=== PATIENT | female | born 1970 | race Caucasian/White ===

== ENCOUNTER 2021-08-09 21:35 | Inpatient (IN) | payer MEDICAID, BC ==
[~2021-08-09] VITALS: Ht 160 cm; Wt 51.4 kg
[2021-08-10 04:45] VITALS: BP 108/70
[2021-08-10] MEDS ORDERED: loperamide 2mg capsule PO PRN (05:25)
[2021-08-10] MEDS ORDERED: magnesium hydroxide 30ml (MOM) UD suspension PO PRN (05:25)
[2021-08-10] MEDS ORDERED: mag hydrox/Alum hydrox/simeth 30ml oral suspension PO PRN (05:25)
[2021-08-10] MEDS ORDERED: acetaminophen 325mg tablet PO PRN ×2 (05:25)
[2021-08-10] MEDS ORDERED: NO HOME MEDS (05:30)
--- NOTE | 2021-08-10 05:46 | NUR ---
Admit note: Pt arrived on floor at 0415 accompanied by [facility] and Jayne PCT. Ambulatory, skin check completed pt took a shower. At first pt irritable and uncooperative. After shower pt in bed 332-b provided warm blankets cooperative with admit process. Per report from [place] the patient's live in boyfriend said she has not slept or ate for days and is constantly taking showers. Per 5150 from [place] law enforcement the pt is unable to care for self. The pt told the officer she was unable to eat because her mouth and anus are full of sin. The pt denies telling law enforcement any of this and she says she is not sleeping because her boyfriend keeps waking her up. Pt c/o stomach pain but declined any medications.
[2021-08-10 08:00] VITALS: BP 95/50
[2021-08-10] MEDS ORDERED: LORazepam 1 MG tablet PO ONE (09:55)
[2021-08-10 10:22] LABS: CLARITY,URINE SLIGHTLY CLOUDY (Clear); COLOR,URINE YELLOW (Yellow); GLUCOSE, URINE NEGATIVE (Neg); KETONES,URINE >=80 mg/dl (Neg); LEUKOCYTE ESTERASE ,URINE NEGATIVE (Neg); NITRITES, URINE NEGATIVE (Neg); OCCULT BLOOD,URINE MODERATE (Neg); PROTEIN,URINE TRACE mg/dl (Neg); UROBILINOGEN,URINE 0.2 E.U/dL (0.2-1.0)
[2021-08-10 10:23] LABS: UA COLLECTION TYPE NON-SPECIFIED
[2021-08-10 10:39] LABS: BACTERIA,URINE FEW /HPF (Neg); MUCUS STRANDS MODERATE /LPF (Neg)
[2021-08-10 10:43] LABS: HYALINE CASTS 0-3 /LPF (NEGATIVE); WBC,URINE 0-4 /HPF (0-4)
[2021-08-10 10:48] LABS: RBC,URINE 0-2 /HPF (0-2); SQUAMOUS EPITHELIAL CELL,UR MODERATE /LPF (FEW)
[2021-08-10] MEDS ORDERED: haloperidol 5mg tablet PO ONE (14:50)
[2021-08-10] MEDS ORDERED: diphenhydrAMINE 25mg capsule PO ONE (14:50)
[2021-08-10] MEDS ORDERED: haloperidol lactate 5mg/ml inj ONE (14:56)
[2021-08-10] MEDS ORDERED: diphenhydrAMINE 50 mg/ml inj ONE (14:56)
[2021-08-10] MEDS ORDERED: magnesium citrate 296ml oral solution PO ONE (18:50)
--- NOTE | 2021-08-10 18:51 | NUR ---
NURSING PROGRESS NOTE: RN received pt. asleep in bed at start of shift. Pt. slept through breakfast. Pt. awoke mid-morning yelling from her room and c/o pain in her right flank. Pt. yells, I have kidney stones! RN received order for U/A. RN offered pt. PRN Tylenol and pt. refused. Pt. states, I need olive oil because the Lord will heal me through it. RN received U/A and sent down to lab, when handing off sample, pt. states, Dinesh is returning and you will be saved. I bless you with a high blessing If you obtain the light you will be extended beyond this earth, its only a matter of time. Pt. informed not to yell as she was disrupting other patients on the unit. RN offered pt. PRN Ativan 1mg po but pt. refused. Pt. went back to sleep. 1000 U/A showed + occult blood, RN informed provider and continue to monitor pt. 1300 Another nursing staff development coordinator approached pt. after she was yelling for olive oil. And started yelling at nursing staff development coordinator as well, yelling, Do you put olive oil on your salad?! When asked what she needs olive oil for, pt. jumped off the bed towards nursing staff development coordinator in a threatening manner. Pt. then went back to sleep. 1500 Pt. awoke yelling that she was in pain, this time pt. points to her upper left quadrant, stating, I need oil, now!. When pt. informed that there was no order to give her olive oil for pain, pt. swore at this nurse, You mother F, you are going to burn in hell You are so ugly with your bald spot! When RN asked pt. to stop yelling, pt. yelled louder, stating, I dont care! Pt. offered PRN medication of Haldol 5mg and Benadryl 25mg and pt. refused. Pt. informed that she cannot continue to yell or security would be called and she would be given an injection. Pt. asked this RN to look up a phone number for a lawyer real estate, when pt. informed she would have to wait pt. became agitated and went back to her room. Pt. refusing physical and 1:1 assessments. Pt. states, get lost loser! 1630 Pt. asking for nursing general handling supervisor. Nursing general handling supervisor came to talk to the pt. and got pt. olive oil and phone number for lawyer real estate. 16:15 Pt. came out of her room yelling, Im hurting, help me! . Pt. refused vital signs assessment and physical assessment and told this RN, get away from me! 1700 RN received order for KUB results pending. Problem: Grave disability with sikhism delusions. Intervention: RN attempted to assess pt. and offer PRN medication. KUB obtained Response: Pt. refused all interventions Plan: Continue to monitor pt. for changes in medical and psychiatric condition, maintain safe milieu, and ground pt. in reality.
[2021-08-10 19:47] VITALS: BP 120/68
--- NOTE | 2021-08-10 22:50 | NUR ---
Admit note: Per report from [place] the patient's live in boyfriend said she has not slept or ate for days and is constantly taking showers. Per 5150 from [place] law enforcement the pt is unable to care for self. The pt told the officer she was unable to eat because her mouth and anus are full of sin. Pt c/o stomach pain but declined any medications. RN received pt. asleep in bed at start of shift. Pt. slept through breakfast. Problem: Pt was in her room at change of shift, states she is here for "grave disability" Pt states "that man was treating me really bad, i'll talk about everything later but right now I'm in a lot of pain." KUB positive for large amount of stool. U/A showed positive for occult blood. Pt c/o stomach pain and stating she is very tired "I havent slept for days and I was dehydrated." Intervention: Pt was seen by hospitalist. CT with contrast is ordered for the morning. Labs were drawn and sent to lab. Pt was given mag citrate. Response: Pt. refusing any prns offered for pain. "I need a shot of toradol but I told the doctor I dont want it." Pt went to sleep shortly after drinking mag citrate. Pt appears to be resting comfortably RR 16. Pt has not had BM yet. Plan: Continue to monitor pt. for changes in medical and psychiatric condition, maintain safe milieu, and ground pt. in reality.
[2021-08-10 22:57] LABS: ALBUMIN 3.3 G/DL (3.4-5.0); ANION GAP 9 (8-16); BLOOD UREA NITROGEN 17 MG/DL (7-18); BUN/CREATININE RATIO 21.3 (6.6-38.0); CALCIUM 9.5 MG/DL (8.5-10.1); CHLORIDE 100 MMOL/L (99-107); GLUCOSE 173 MG/DL (70-104); POTASSIUM 3.8 MMOL/L (3.5-5.1); SODIUM 130 MMOL/L (135-145); TOTAL CARBON DIOXIDE 20.8 MMOL/L (24-32); eGFR 76 ML/MIN
[2021-08-10 22:58] LABS: HCG SERUM QL NEGATIVE
[2021-08-10 23:01] LABS: BASOPHILS # (AUTO) 0.1 X10'3 (0-0.2); BASOPHILS % (AUTO) 0.4 % (0-1); EOSINOPHILS % (AUTO) 0 % (0-6); HEMATOCRIT 37.5 % (35.0-45.0); HEMOGLOBIN 11.5 g/dl (12.0-16.0); LYMPHOCYTES # (AUTO) 0.3 X10'3 (1.1-4.8); LYMPHOCYTES % (AUTO) 1.9 % (21-51); MEAN CORPUSCULAR HEMOGLOBIN 22.6 PG (27.0-31.0); MEAN CORPUSCULAR HGB CONC 30.7 g/dL (33.0-36.5); MEAN CORPUSCULAR VOLUME 73.6 FL (78-98); MEAN PLATELET VOLUME 7.7 FL (7.4-10.4); MONOCYTES # (AUTO) 0.4 X10'3 (0-0.9); MONOCYTES % (AUTO) 2.2 % (2-12); NEUTROPHILS # (AUTO) 17.4 X10'3 (1.8-7.7); NEUTROPHILS % (AUTO) 95.5 % (42-75); PLATELET COUNT 402 X10'3 (140-440); RED CELL DISTRIBUTION WIDTH 19.5 % (11.5-14.5); WHITE BLOOD COUNT 18.2 X10'3 (4.5-11.0)
[2021-08-10 23:23] LABS: ANISOCYTOSIS 2+; PLATELET ESTIMATE NORMAL
[2021-08-10 23:24] LABS: BURR CELLS FEW; MICROCYTOSIS 1+
[2021-08-10] MEDS ORDERED: IOHEXOL 300 MG/ML 30ML INFUS..BTL IV ONE ×2 (23:50)
--- NOTE | 2021-08-10 23:50 | NUR ---
Contacted Dr Blackmon to notify her of patients elevated WBC of 18.3, she ordered to do the CT scan now, IV placed in R arm, brought to CT by PCT Mann and also security.
[2021-08-11 06:37] VITALS: BP 94/55
[2021-08-11 06:53] LABS: HEMOGLOBIN A1C 5.6 % (4.5-6.2)
[2021-08-11 06:59] LABS: CHOL/HDL RATIO 1.8 (0.00-4.99); CHOLESTEROL 117 MG/DL (0-200); HDL CHOLESTEROL 65 MG/DL (35-60); LDL CHOLESTEROL 28 MG/DL (50-100); TRIGLYCERIDES 72 MG/DL (20-135)
[2021-08-11 08:00] VITALS: BP 94/55
--- NOTE | 2021-08-11 12:59 | NUR ---
D/C CONTACT Sabrina from [facility] called to check on patient. Informed her that patient is likely getting transferred to the [facility]. She requested to be notified when patient is ready for discharge. She can be contacted at [phone]. CHRISSY Capmos
--- NOTE | 2021-08-11 15:07 | NUR ---
Page Accepted promotional table spacer Message: [id number] Overs. Pt from [facility] has arrived to the [facility]. Is there anything you would like done or any new orders? Lesa @[phone] Custom Responses: promotional table spacer Transaction number: [id number]
--- NOTE | 2021-08-11 15:09 | NUR ---
patient brought over from [facility]. Dr spicer to notify of arrival and asked if there are any new orders. Waiting for admitting to admit pt to [facility].
--- NOTE | 2021-08-11 15:40 | NUR ---
Discharge: Pt escorted with security to PCU room 2287I. Handed off to Sloane WALL and ensured pt had a sitter in place prior to leaving pt. 5150 and advisement given to RN.
[2021-08-11] MEDS ORDERED: neostigmine methylsulfate 1 MG/ML 10ml vial ONE (18:58)
[2021-08-11] MEDS ORDERED: piperacillin/tazobactam 3.375gm/50ml bag IV ONE (18:58)
[2021-08-11] MEDS ORDERED: glycopyrrolate 0.2mg/ml inj ONE (18:58)
[2021-08-11] MEDS ORDERED: sevoflurane 250ml liquid IH ONE (18:58)
[2021-08-11] MEDS ORDERED: fentaNYL/PF 50MCG/1 ML 2ML syringe ONE ×2 (19:02→19:51)
[2021-08-11] MEDS ORDERED: midazolam 1 mg/ML 2ml injection ONE (19:02)
[2021-08-11] MEDS ORDERED: rocuronium 10mg/ml inj IV ONE (19:07)
[2021-08-11] MEDS ORDERED: propofol inj 20 ML IV ONE (19:07)
[2021-08-11] MEDS ORDERED: LIDOcaine 1%/PF 5ML 10 MG/ML VIAL ONE (19:07)
[2021-08-11] MEDS ORDERED: ondansetron/PF 4mg/2ml inj ONE (19:07)
[2021-08-11] MEDS ORDERED: dexamethasone sod phosphate 4mg/ml inj. ONE (19:08)
[2021-08-11] MEDS ORDERED: ceFOXitin 1000 MG inj ONE (19:22)
[2021-08-12] MEDS ORDERED: PANT40TA54 PO (13:33)
[2021-08-12] MEDS ORDERED: AMOX-117 PO (13:33)
== END 2021-08-11 14:54 | disposition short-term general hospital (02) | DRG 753 ==
LOC: ADULT MH 22:30
PROVIDERS: ADMIT Psychiatry & Neurology Psychiatry; ATTEND Psychiatry & Neurology Psychiatry
PROC: BW211ZZ Computerized Tomography (CT Scan) of Abdomen and Pelvis using Low Osmolar Contrast (ICD-10-PCS; principal; 2021-08-11)
DX: F39 Unspecified mood [affective] disorder (principal); R18.8 Other ascites; F41.9 Anxiety disorder, unspecified; R10.84 Generalized abdominal pain; D72.829 Elevated white blood cell count, unspecified; F12.90 Cannabis use, unspecified, uncomplicated; R30.0 Dysuria; R31.29 Other microscopic hematuria; Z82.49 Family history of ischemic heart disease and other diseases of the circulatory system; Z85.41 Personal history of malignant neoplasm of cervix uteri; Z98.84 Bariatric surgery status; Z98.891 History of uterine scar from previous surgery
CPT/HCPCS: 36415; 74018; 74177; 80048; 80061; 81001; 83036; 84703; 85008; 85025; 87081; J0694; J1100; J1200; J1630; J2250; J2405; J2543; J2704; J2710; J3010; J3490

== ENCOUNTER 2021-08-11 14:42 | Inpatient (IN) | payer BC ==
[2021-08-11] VITALS (15 sets, daily range): BP systolic 105–140; BP diastolic 53–79
[~2021-08-11] VITALS: Ht 160 cm; Wt 51.4 kg
[~2021-08-11 14:42] MED LIST: NO HOME MEDS
[2021-08-11] MEDS ORDERED: magnesium hydroxide 30ml (MOM) UD suspension PO PRN (14:50)
[2021-08-11] MEDS ORDERED: acetaminophen 650mg rectal suppository RC PRN (14:50)
[2021-08-11] MEDS ORDERED: ondansetron/PF 4mg/2ml inj IV PRN ×2 (14:50→19:30)
[2021-08-11] MEDS ORDERED: normal saline 1000ml 1,000 ML IV SCH ×2 (14:50→20:25)
[2021-08-11] MEDS ORDERED: acetaminophen 325mg tablet PO PRN ×2 (14:50)
[2021-08-11] MEDS ORDERED: mag hydrox/Alum hydrox/simeth 30ml oral suspension PO PRN (14:50)
[2021-08-11] MEDS ORDERED: POTASSIUM BICARB 20meq eff tab 20 MEQ TABLET.EFF PO PRN ×2 (14:50)
[2021-08-11] MEDS ORDERED: HYDROcodone/acetaminophen 10/325mg tab PO PRN (14:50)
[2021-08-11] MEDS ORDERED: HYDROmorphone/PF 0.2 MG/ML SYRINGE IV PRN (14:50)
[2021-08-11] MEDS ORDERED: magnesium 4gm in 100ml NS 100 ML IV PRN (14:50)
[2021-08-11] MEDS ORDERED: magnesium Cl slow-release 64mg tablet PO PRN (14:50)
[2021-08-11] MEDS ORDERED: HYDROcodone/acetaminophen 5mg/325mg tablet PO PRN (14:50)
[2021-08-11] MEDS ORDERED: HYDROmorphone inj. 0.5 MG/0.5 ML DISP.SYRIN IV PRN (14:50)
[2021-08-11] MEDS ORDERED: magnesium 2GM in 50ml NS 50 ML IV PRN (14:50)
[2021-08-11] MEDS ORDERED: metoclopramide 5 mg/ml inj IV PRN (14:50)
[2021-08-11] MEDS ORDERED: ondansetron 4mg rapidly disintigrating tab PO PRN (14:50)
[2021-08-11] MEDS ORDERED: bisacodyl 10mg suppository rectal RC PRN (14:50)
[2021-08-11] MEDS ORDERED: potassium CL 10mEq/100ml bag 100 ML IV PRN (14:50)
--- NOTE | 2021-08-11 15:36 | NUR ---
Page Sent promotional table spacer PAGER ID: [phone] MESSAGE: [id number] Overs. PAULA patient has arrived from [facility]. Lesa @[phone] (59 character message out of a maximum of 240)
--- NOTE | 2021-08-11 16:50 | NUR ---
vanco has not been brought up from pharmacy it will be started shanel. Zosyn started after blood cultures were drawn
[2021-08-11] MEDS: piperacillin/tazo 3.375gm/50ml 50 ML IV SCH ×2 (16:54→23:54)
[2021-08-11 17:03] LABS: OCCULT BLOOD STOOL POSITIVE (Neg)
[2021-08-11 17:03] LABS: BASOPHILS % (AUTO) 0.3 % (0-1); EOSINOPHILS % (AUTO) 0 % (0-6); HEMATOCRIT 34.4 % (35.0-45.0); HEMOGLOBIN 10.6 g/dl (12.0-16.0); LYMPHOCYTES # (AUTO) 0.5 X10'3 (1.1-4.8); LYMPHOCYTES % (AUTO) 2.7 % (21-51); MEAN CORPUSCULAR HEMOGLOBIN 22.2 PG (27.0-31.0); MEAN CORPUSCULAR HGB CONC 30.7 g/dL (33.0-36.5); MEAN CORPUSCULAR VOLUME 72.2 FL (78-98); MEAN PLATELET VOLUME 7.3 FL (7.4-10.4); MONOCYTES # (AUTO) 0.9 X10'3 (0-0.9); MONOCYTES % (AUTO) 4.7 % (2-12); NEUTROPHILS # (AUTO) 17.4 X10'3 (1.8-7.7); NEUTROPHILS % (AUTO) 92.3 % (42-75); PLATELET COUNT 409 X10'3 (140-440); RED BLOOD COUNT 4.76 X10'6 (4.20-5.60); WHITE BLOOD COUNT 18.8 X10'3 (4.5-11.0)
[2021-08-11] MEDS ORDERED: pantoprazole 40MG/NS 100ML BAG 100 ML IV SCH (17:10)
[2021-08-11 17:17] LABS: APTT 27 SECONDS (22-32)
[2021-08-11 17:23] LABS: ANISOCYTOSIS 2+; MICROCYTOSIS 1+; PLATELET ESTIMATE NORMAL
[2021-08-11 17:24] LABS: HYPOCHROMASIA 1+; POIKILOCYTOSIS 1+
[2021-08-11 17:25] LABS: HEMOGLOBIN A1C 5.7 % (4.5-6.2)
[2021-08-11 17:36] LABS: ALANINE AMINOTRANSFERASE 11 U/L (12-78); ALBUMIN 2.9 G/DL (3.4-5.0); ALBUMIN/GLOBULIN RATIO 0.7 (1.1-1.5); ALKALINE PHOSPHATASE 46 IU/L (46-116); ANION GAP 9 (8-16); ASPARTATE AMINO TRANSFERASE 17 U/L (10-37); BILIRUBIN,TOTAL 0.6 MG/DL (0.1-1.0); BLOOD UREA NITROGEN 27 MG/DL (7-18); BUN/CREATININE RATIO 30.3 (6.6-38.0); CALCIUM 9.1 MG/DL (8.5-10.1); CHLORIDE 97 MMOL/L (99-107); CREATININE 0.89 MG/DL (0.40-0.90); GLUCOSE 124 MG/DL (70-104); MAGNESIUM 2.7 MG/DL (1.5-2.4); POTASSIUM 3.9 MMOL/L (3.5-5.1); SODIUM 133 MMOL/L (135-145); TOTAL CARBON DIOXIDE 27.3 MMOL/L (24-32); TOTAL PROTEIN 6.8 G/DL (6.4-8.2); eGFR 67 ML/MIN
--- NOTE | 2021-08-11 17:53 | NUR ---
iv vanco and protonix not brought up from pharmacy second call
--- NOTE | 2021-08-11 18:01 | NUR ---
3 vape pens from pt belongings placed in chart for return to patient at DC
--- NOTE | 2021-08-11 18:10 | NUR ---
Patient in room PCU 3015. I have received report from MAE Mcfadden and had the opportunity to ask questions and assume patient care.
[2021-08-11] MEDS ORDERED: LIDOcaine 1% 30ml preserv. free vial ONE (18:13)
[2021-08-11] MEDS ORDERED: BUPIVAcaine/PF 2.5 mg/ml (0.25%) 30ml vial ONE (18:13)
--- NOTE | 2021-08-11 18:28 | NUR ---
Problems reprioritized. Patient report given, questions answered & plan of care reviewed with Ivana WALL. Patient in no acute distress
[2021-08-11] MEDS: vancomycin/NS 1 GM ADD-VANTAGE 250 ML IV SCH (18:45)
[2021-08-11] MEDS ORDERED: hydrALAZINE 20mg/ml inj. IV PRN (19:30)
[2021-08-11] MEDS ORDERED: fentaNYL/PF 50MCG/1 ML 2ML syringe IV PRN ×2 (19:30)
[2021-08-11] MEDS ORDERED: morphine 2 MG/ML inj. syringe IV PRN (19:30)
[2021-08-11] MEDS ORDERED: morphine 4 MG/ML inj SYRINge IV PRN (19:30)
[2021-08-11] MEDS ORDERED: ringers solution, lacted 1,000 ML IV SCH (19:30)
[2021-08-11] MEDS ORDERED: labetalol 20mg/4ml (5mg/ml) syringe IV PRN (19:30)
[2021-08-11] MEDS: K and/or MAG REPLACEMENT MC SCH (20:00)
--- NOTE | 2021-08-11 20:13 | NUR ---
Received from OR via bed , accompanied by Anesthesiologist Elliot and report given by Anesthesiolgist. pt is groggy, but moves all extremities, talking following commands
[2021-08-11] MEDS ORDERED: naloxone 0.4 mg/ml inj IV PRN (20:25)
[2021-08-11] MEDS ORDERED: HYDROmorph/NS 0.2 mg/ml PCA 100 ML IV SCH (20:25)
--- NOTE | 2021-08-11 20:33 | NUR ---
report given to Micky WALL, pt remains in stable condition
[2021-08-11] MEDS ORDERED: acetaminophen 120MG suppository, rectal RC PRN (20:35)
--- NOTE | 2021-08-11 20:53 | NUR ---
PATIENT A&OX4, DENIES PAIN , V/S WNL, CSM INTACT, 20G LUE PIV , SCD ON, 3 LAP SITES WITH BANDAIDS TO ABDOMEN CDI. OPATIENT TAKEN TO 3015B WITH ALL BELONGINGS AND HOOKED UP TO MONITORS IN ROOM AND REPORT GIVEN TO RN WHO HAS TAKIEN OVER PATIENT CARE.
[2021-08-11] MEDS ORDERED: temazepam 15mg capsule PO PRN (21:00)
--- NOTE | 2021-08-11 21:00 | NUR ---
pt gone to surgery approximately 1814. return approximately 2044. pt denies pain, nausea, vomiting. pt had laproscopic procedure of abdomen. lap sites x3 covered with bandaids. pt return with FC. pt requesting FC to be removed. pt doing well.
[2021-08-11] MEDS: heparin, porcine 5000 units/ml vial SQ SCH (21:34)
[2021-08-11] MEDS: docusate sod 100mg capsule PO SCH (21:34)
[2021-08-11] MEDS: pantoprazole 40MG/NS 100ML BAG 100 ML IV SCH (22:09)
[2021-08-12 00:30] VITALS: BP 106/55
[2021-08-12] MEDS: pantoprazole 40MG/NS 100ML BAG 100 ML IV SCH ×2 (01:00→04:42)
--- NOTE | 2021-08-12 01:53 | NUR ---
removed FC at 0001. pt tolerated procedure well. no c/o pain.
[2021-08-12 02:00] VITALS: BP 107/55
[2021-08-12] MEDS: vancomycin/NS 1 GM ADD-VANTAGE 250 ML IV SCH (04:42)
--- NOTE | 2021-08-12 06:17 | NUR ---
Problems reprioritized. Patient report given, questions answered & plan of care reviewed with MAE Mcfadden.
[2021-08-12 07:00] VITALS: BP 104/56
[2021-08-12 07:15] LABS: BASOPHILS % (AUTO) 0.1 % (0-1); EOSINOPHILS % (AUTO) 0 % (0-6); HEMATOCRIT 28.7 % (35.0-45.0); HEMOGLOBIN 8.9 g/dl (12.0-16.0); LYMPHOCYTES # (AUTO) 0.4 X10'3 (1.1-4.8); LYMPHOCYTES % (AUTO) 3.1 % (21-51); MEAN CORPUSCULAR HEMOGLOBIN 22.7 PG (27.0-31.0); MEAN CORPUSCULAR HGB CONC 30.8 g/dL (33.0-36.5); MEAN CORPUSCULAR VOLUME 73.6 FL (78-98); MEAN PLATELET VOLUME 7.7 FL (7.4-10.4); MONOCYTES # (AUTO) 0.8 X10'3 (0-0.9); NEUTROPHILS # (AUTO) 12.7 X10'3 (1.8-7.7); NEUTROPHILS % (AUTO) 90.8 % (42-75); PLATELET COUNT 273 X10'3 (140-440); RED CELL DISTRIBUTION WIDTH 20.4 % (11.5-14.5); WHITE BLOOD COUNT 13.9 X10'3 (4.5-11.0)
[2021-08-12 07:40] LABS: ALANINE AMINOTRANSFERASE 16 U/L (12-78); ALBUMIN 2.2 G/DL (3.4-5.0); ALBUMIN/GLOBULIN RATIO 0.6 (1.1-1.5); ALKALINE PHOSPHATASE 41 IU/L (46-116); ANION GAP 9 (8-16); ASPARTATE AMINO TRANSFERASE 24 U/L (10-37); BILIRUBIN,TOTAL 0.4 MG/DL (0.1-1.0); BLOOD UREA NITROGEN 20 MG/DL (7-18); BUN/CREATININE RATIO 26.3 (6.6-38.0); CALCIUM 8.5 MG/DL (8.5-10.1); CHLORIDE 102 MMOL/L (99-107); CHOL/HDL RATIO 2.2 (0.00-4.99); CHOLESTEROL 100 MG/DL (0-200); CREATININE 0.76 MG/DL (0.40-0.90); GLUCOSE 100 MG/DL (70-104); HDL CHOLESTEROL 45 MG/DL (35-60); LDL CHOLESTEROL 27 MG/DL (50-100); MAGNESIUM 2.3 MG/DL (1.5-2.4); POTASSIUM 4.3 MMOL/L (3.5-5.1); SODIUM 134 MMOL/L (135-145); TOTAL CARBON DIOXIDE 23.3 MMOL/L (24-32); TOTAL PROTEIN 5.7 G/DL (6.4-8.2); TRIGLYCERIDES 80 MG/DL (20-135); eGFR 81 ML/MIN
[2021-08-12] MEDS ORDERED: docusate sod 100mg capsule PO SCH (08:00)
[2021-08-12] MEDS: K and/or MAG REPLACEMENT MC SCH (08:00)
[2021-08-12] MEDS: heparin, porcine 5000 units/ml vial SQ SCH (08:00)
[2021-08-12] MEDS ORDERED: sennosides/docusate sodium tablet PO SCH (08:00)
[2021-08-12 08:17] LABS: PLATELET ESTIMATE NORMAL
[2021-08-12 08:18] LABS: ANISOCYTOSIS 3+; ELLIPTOCYTES 1+; HYPOCHROMASIA 1+; MICROCYTOSIS 1+; POIKILOCYTOSIS 1+; SCHISTOCYTES FEW
[2021-08-12] MEDS: docusate sod 100mg capsule PO SCH (08:44)
[2021-08-12] MEDS: piperacillin/tazo 3.375gm/50ml 50 ML IV SCH (08:44)
[2021-08-12] MEDS ORDERED: acetaminophen 325mg rectal suppository RC PRN (09:57)
--- NOTE | 2021-08-12 10:47 | NUR ---
Page Sent promotional table spacer PAGER ID: [phone] MESSAGE: [id number] Overs. Pt refusing IV protonix would like PO. IV Zosyn and protonix are not compatible. She will not let me place a new PIV to run both. Please advise. Lesa @[phone] (170 character message out of a maximum of 240)
--- NOTE | 2021-08-12 10:47 | NUR ---
Patient refusing IV protonix prefering me to run antibiotic. Per pharmacy protonix and zosyn are incompatible. Patient will not let me place new IV to run both. Per phone conversation with Dr. Bright CAMACHO IV protonix and start protonix 40 mg PO once daily.
[2021-08-12 11:00] VITALS: BP 116/73
--- NOTE | 2021-08-12 11:11 | NUR ---
patient demanding to leave stating"the surgeon cleared me". Patient wants to leave AMA. Patient acting almost manic to me. She is raining her voice to everyone and getting all worked up. She want to talk to advocate. I put in [employer] dispatcher consult. I will wait for their assessment.
--- NOTE | 2021-08-12 11:23 | NUR ---
promotional table spacer promotional table spacer Page Sent promotional table spacer PAGER ID: [phone] MESSAGE: [id number] Overs. Pt family present and would like to talk to you face to face. Pt freaking out and wants to leave AMA. Please call or come to floor when you are able. Lesa @[phone]
[2021-08-12] MEDS ORDERED: pantoprazole 40mg Tablet.DR PO SCH (11:40)
--- NOTE | 2021-08-12 13:13 | NUR ---
Page Sent promotional table spacer PAGER ID: [phone] MESSAGE: [id number] Overs. Patient and family requesting that you come and talk to them. Page sent at their request. Lesa @[phone] (115 character message out of a maximum of 240)
[2021-08-12] MEDS ORDERED: AMOX-117 PO (13:33)
[2021-08-12] MEDS ORDERED: PANT40TA54 PO (13:33)
--- NOTE | 2021-08-12 13:49 | NUR ---
vapes returned to patient
--- NOTE | 2021-08-12 14:17 | NUR ---
Patient was determined not to be gravely disabled and not eligible for a mental health hold. Patient demanded to be discharged today. Her parents drove down from [place] and are taking her home. PIV x2 were ripped out by the patient with cannulas intact. RX were escripted to [facility]. DC instructions were reviewed with patient and parents and all verbalized understanding. Patient was alert oriented and fiesty at time of discharge. Vape pens x3 were returned to patient . All belongings went home with her. Patient was adamant about leaving today and would have left AMA if not DC today. I would have preferred that she stay at least one more day for observation to make sure there were no complications with surgery and for IV antibiotics and protonix. Since she absolutely was not going to do that, I think that DC home with a good support system and PO antibiotics is the best outcome.
[2021-08-13] MEDS ORDERED: VANCOMYCIN LEVEL IV ONE (03:30)
[2021-08-13] MEDS ORDERED: pantoprazole 40mg Tablet.DR PO SCH (07:30)
== END 2021-08-12 13:56 | disposition home or self-care (01) | DRG 853 ==
LOC: PCU 3S 14:54
PROVIDERS: ADMIT Family Medicine; ATTEND Family Medicine
PROC: 8E0W4CZ Robotic Assisted Procedure of Trunk Region, Percutaneous Endoscopic Approach (ICD-10-PCS; 2021-08-11)
PROC: 0DU647Z Supplement Stomach with Autologous Tissue Substitute, Percutaneous Endoscopic Approach (ICD-10-PCS; principal; 2021-08-11 18:58)
DX: A41.9 Sepsis, unspecified organism (principal); K25.5 Chronic or unspecified gastric ulcer with perforation; K65.0 Generalized (acute) peritonitis; E87.1 Hypo-osmolality and hyponatremia; R18.8 Other ascites; F22 Delusional disorders; Z20.822 Contact with and (suspected) exposure to COVID-19; Z98.84 Bariatric surgery status
CPT/HCPCS: Z7506; Z7508; 36415; 80053; 80061; 82272; 83036; 83605; 83735; 84145; 84443; 85008; 85025; 85610; 85730; 87040; A4215; A4338; A4618; A7000; C1758; C9113; G0378; J1170; J1644; J2543; J3370; J3490; J7030; J7120